=== PATIENT | male | born 1950 | race Caucasian/White ===

== ENCOUNTER 2021-03-12 09:51 | Inpatient (IN) ==
[2021-03-12] MEDS ORDERED: Aspirin Enteric Coated 81 MG Tablet PO ONE (14:03)
[2021-03-13 05:16] LABS: Basophils % 0.5 %; Eosinophils # 0.1 K/mcL (0.0-0.6); Hematocrit 42.8 % (37.5-50.1); Hemoglobin 14.5 g/dL (12.9-16.9); Immature Granulocytes % 0.2 % (0-4); Lymphocytes # 2.8 K/mcL (0.6-4.6); Mean Corpuscular HGB Conc 33.9 g/dL (31.6-35.5); Mean Corpuscular Hemoglobin 32.2 pg (28.0-33.3); Mean Corpuscular Volume 94.9 fL (83.0-100.0); Monocytes # 0.5 K/mcL (0.0-1.3); Monocytes % 9.1 %; Neutrophils # 2.2 K/mcL (1.6-8.9); Platelet Count 221 K/mcL (140-400); Red Blood Count 4.51 M/mcL (4.19-5.50); Red Cell Distribution Width 11.9 % (11.5-14.5); Segmented Neutrophils % 38.2 %; White Blood Count 5.6 K/mcL (4.3-11.1)
[2021-03-13] MEDS: *HR* Enoxaparin 40 MG/0.4 ML SYRINGE SQ SCH (06:24)
[2021-03-13 07:21] LABS: BUN/Creatinine Ratio 13 (6-26); Blood Urea Nitrogen 13 mg/dL (8-23); Calcium 9.2 mg/dL (8.6-10.3); Carbon Dioxide 31 mEq/L (23-29); Chloride 108 mEq/L (98-107); Glucose 94 mg/dL (70-105); Osmolality,Calculated 298 (280-300); Potassium 4.2 mEq/L (3.5-5.1); Sodium 144 mEq/L (136-145); eGFR For African Americans > 60 (> 60); eGFR For Non-African Americans > 60 (> 60)
[2021-03-13] MEDS: Aspirin Enteric Coated 81 MG Tablet PO SCH (08:27)
[2021-03-13] MEDS: Multivit/Ca/Min/Fe/FA 1 TAB TABLET PO SCH (08:27)
[2021-03-14] MEDS: *HR* Enoxaparin 40 MG/0.4 ML SYRINGE SQ SCH (06:46)
[2021-03-14] MEDS: Multivit/Ca/Min/Fe/FA 1 TAB TABLET PO SCH (09:16)
[2021-03-14] MEDS: Aspirin Enteric Coated 81 MG Tablet PO SCH (09:16)
[2021-03-15] MEDS: *HR* Enoxaparin 40 MG/0.4 ML SYRINGE SQ SCH (06:48)
[2021-03-15] MEDS: Aspirin Enteric Coated 81 MG Tablet PO SCH (08:46)
[2021-03-15] MEDS: Multivit/Ca/Min/Fe/FA 1 TAB TABLET PO SCH (08:46)
[2021-03-16] MEDS: *HR* Enoxaparin 40 MG/0.4 ML SYRINGE SQ SCH (06:42)
[2021-03-16 07:43] VITALS: BP 117/67; PULSE 51; RESP 15; TEMP 97.7; O2SAT 95
[2021-03-16] MEDS: Multivit/Ca/Min/Fe/FA 1 TAB TABLET PO SCH (10:56)
[2021-03-16] MEDS: Aspirin Enteric Coated 81 MG Tablet PO SCH (10:56)
== END 2021-03-16 15:43 | disposition home or self-care (01) | DRG 946 ==
LOC: INPPIK 09:54
PROVIDERS: ADMIT Family Medicine; ATTEND Family Medicine